=== PATIENT | male | born 1990 | race Caucasian/White ===

== ENCOUNTER → 2017-07-30 13:49 | Emergency (ER) | payer SELFPAY ==
[~2017-07-30 13:49] MED LIST: Cefepime(*) 1 GM in NS 0.9% 50 ML* 50 ML IVPB ONE; NS 0.9% 1000 ML* 1,000 ML IV ONE; NS 0.9% 50 ML* 50 ML ONE; Nicotine PATCH 14 MG/24 HR* PATCH TRANSDERM ONE; Nicotine Patch Removal NOTE PATCH OFF SCH; ceFUROXime TAB(*) 250 MG PO ONE
--- NOTE | 2017-07-30 16:19 | RAD ---
INDICATION: Presyncope COMPARISON: None. TECHNIQUE: Single AP portable view of the chest was obtained. FINDINGS: Image quality is compromised due to the relative inferiority of a portable chest x-ray. The heart and mediastinum exhibit normal size and contour. The lungs are grossly clear. There is no evidence of a large pleural effusion. Visualized bones are normal for the patient's age. IMPRESSION: No radiographic evidence for acute cardiopulmonary abnormality on this portable chest x-ray.
[2017-07-30 17:06] LABS: ABS Basophils 0 10^3/ul (0-0.2); ABS Eosinophils 0.1 10^3/ul (0-0.6); ABS Lymphocytes 1.8 10^3/ul (1.0-4.8); ABS Monocytes 0.4 10^3/ul (0-0.8); ABS Neutrophils 3.1 10^3/ul (1.5-7.7); ABS Nucleated RBC 0 10^3/ul; Eosinophil % 1.4 % (0-6); Hematocrit 44 % (42-52); Hemoglobin 14.9 g/dl (14.0-18.0); Lymphocyte % 33.4 % (25-47); Mean Corpuscular HGB Conc 34 g/dl (31-36); Mean Corpuscular Hemoglobin 32 pg (27-31); Mean Corpuscular Volume 94 fL (80-94); Mean Platelet Volume 8.4 um3 (7.4-10.4); Nucleated Red Blood Cells % 0.1; Platelet Count 210 10^3/ul (150-450); Red Blood Count 4.67 10^6/ul (4.0-5.4); Red Cell Distribution Width 13 % (10.5-15); White Blood Count 5.4 10^3/ul (3.5-10.8)
[2017-07-30 17:24] LABS: EGFR Non-African American 83.1 (>60)
--- NOTE | 2017-07-30 18:56 | ED ---
Kaylynn Chaves Emily, scribed for Leonel Walker MD on 07/30/17 at 1557 . Shortness of Breath - HPI Summary HPI Summary: This patient is a 26 year old M presenting to [facility] with a chief complaint of SOB that began earlier today. Pt reports near syncope while working. The patient rates the pain 5/10 in severity. Symptoms aggravated by nothing. Symptoms alleviated by nothing. Patient reports lightheadedness, CP (tightness) , throat tightness, nausea, and cough. Patient denies vomiting. - History of Current Complaint Chief Complaint: EDShortnessOfBreath Time Seen by Provider: 07/30/17 15:33 Hx Obtained From: Patient Onset/Duration: Sudden Onset, Lasting Hours, Still Present Timing: Constant Current Severity: Moderate Aggrevating Factors: Nothing Alleviating Factors: Nothing Associated Signs & Symptoms: Cough (Productive), Chest Pain Unrelated to Cough - Allergy/Home Medications Allergies/Adverse Reactions: Allergies Allergy/AdvReac Type Severity Reaction Status Date / Time No Known Allergies Allergy Verified 07/30/17 13:57 Home Medications: Home Medications Acetaminophen TAB* [Tylenol TAB*] 650 mg PO Q4H PRN 07/30/17 [History Confirmed 07/30/17] PMH/Surg Hx/FS Hx/Imm Hx Previously Healthy: Yes Infectious Disease History: No Infectious Disease History: Denies: Traveled Outside the [place] in Last 30 Days - Family History Known Family History: Positive: Other - Negative [place] - Social History Occupation: Employed Full-time Lives: Alone Review of Systems ENT: Other - Positive throat tightness Positive: Chest Pain Positive: Shortness Of Breath, Cough Positive: Nausea. Negative: Vomiting All Other Systems Reviewed And Are Negative: Yes Physical Exam - Summary Physical Exam Summary: Appearance: Well-appearing, Well-nourished Skin: Warm Eyes: Normal ENT: Normal Neck: Supple, nontender Respiratory: Clear to auscultation Cardiovascular: Regular rhythm. Normal S1, S2. Sinus bradycardia at 55 bpm. Abdomen: Soft, nontender Musculoskeletal: Normal, Strength/ROM Intact Neurological: Normal, A&Ox3 Psychiatric: Normal General: No acute distress Triage Information Reviewed: Yes Vital Signs On Initial Exam: Initial Vitals Temp Pulse Resp BP Pulse Ox 98.0 F 53 14 143/82 100 07/30/17 13:54 07/30/17 13:54 07/30/17 13:54 07/30/17 13:54 07/30/17 13:54 Vital Signs Reviewed: Yes Diagnostics - Vital Signs Vital Signs Temp Pulse Resp BP Pulse Ox 07/30/17 13:54 98.0 F 53 14 143/82 100 - Laboratory Lab Results: Lab Results 07/30/17 07/30/17 Range/Units 16:56 16:56 WBC 5.4 (3.5-10.8) 10^3/ul RBC 4.67 (4.0-5.4) 10^6/ul Hgb 14.9 (14.0-18.0) g/dl Hct 44 (42-52) % MCV 94 (80-94) fL MCH 32 H (27-31) pg MCHC 34 (31-36) g/dl RDW 13 (10.5-15) % Plt Count 210 (150-450) 10^3/ul MPV 8.4 (7.4-10.4) um3 Neut % (Auto) 56.9 (38-83) % Lymph % (Auto) 33.4 (25-47) % [place] % (Auto) 8.1 H (0-7) % Eos % (Auto) 1.4 (0-6) % Baso % (Auto) 0.2 (0-2) % Absolute Neuts (auto) 3.1 (1.5-7.7) 10^3/ul Absolute Lymphs (auto) 1.8 (1.0-4.8) 10^3/ul Absolute Monos (auto) 0.4 (0-0.8) 10^3/ul Absolute Eos (auto) 0.1 (0-0.6) 10^3/ul Absolute Basos (auto) 0 (0-0.2) 10^3/ul Absolute Nucleated RBC 0 10^3/ul Nucleated RBC % 0.1 Sodium 137 L (139-145) mmol/L Potassium 3.9 (3.5-5.0) mmol/L Chloride 103 (101-111) mmol/L Carbon Dioxide 28 (22-32) mmol/L Anion Gap 6 (2-11) mmol/L BUN 10 (6-24) mg/dL Creatinine 1.09 (0.67-1.17) mg/dL Est GFR ( Amer) 106.9 (>60) Est GFR (Non-Af Amer) 83.1 (>60) BUN/Creatinine Ratio 9.2 (8-20) Glucose 94 (70-100) mg/dL Calcium 9.3 (8.6-10.3) mg/dL Total Bilirubin 1.50 H (0.2-1.0) mg/dL AST 82 H (13-39) U/L ALT 145 H (7-52) U/L Alkaline Phosphatase 72 (34-104) U/L Troponin I 0.01 (<0.04) ng/mL Total Protein 7.1 (6.4-8.9) g/dL Albumin 4.3 (3.2-5.2) g/dL Globulin 2.8 (2-4) g/dL Albumin/Globulin Ratio 1.5 (1-3) TSH 0.84 (0.34-5.60) mcIU/mL Result Diagrams: 07/30/17 16:56 07/30/17 16:56 Lab Statement: Any lab studies that have been ordered have been reviewed, and results considered in the medical decision making process. - Radiology CXR Radiology Interpretation Completed By: Radiologist - CXR reveals, per radiologist, no radiographic evidence for acute cardiopulmonary abnormality on this portable chest XR. ED physician has reviewed this radiology report. - EKG 1355 Cardiac Rate: Bradycardia EKG Rhythm: Sinus Rhythm EKG Interpretation: No STT wave changes Re-Evaluation - Re-Evaluation First Eval Re-Evaluation Time: 17:09 Change: Unchanged Comment: Discussed results and plan of care with pt Course/Dx - Course Course Of Treatment: CXR mild B/L haziness, he is a smoker and smokes dailt, has been having brown-black sputum for many weeks, upon further questioning. pt refused to stay for 1g of Cefepime IV. Gave 1g PO Ceftin and will tx x10 days as outpt. Also advised to follow up with cardiology irving for bradycardia for holter monitor pt was recommended a while back but procrastinated for. - Diagnoses Provider Diagnoses: Bronchitis, Sinus bradycardia Discharge - Sign-Out/Discharge Documenting (check all that apply): Discharge - Discharge Plan Condition: Stable Disposition: HOME Referrals: No Primary Care Phys,NOPCP [Primary Care Provider] - - Billing Disposition and Condition Condition: STABLE Disposition: HOME The documentation as recorded by the scribe, Day,Vanessa accurately reflects the service I personally performed and the decisions made by , Leonel Walker MD.
[2017-07-30 19:08] VITALS: BP 135/79
== END | disposition home or self-care (01) ==
LOC: ED 13:49
DX: J40 Bronchitis, not specified as acute or chronic (principal); R00.1 Bradycardia, unspecified; R42 Dizziness and giddiness; R07.89 Other chest pain; R07.0 Pain in throat; R11.0 Nausea
CPT/HCPCS: 36415; 71045; 80053; 84443; 84484; 85025; 93005; 99283; A9270-GY; J0692